=== PATIENT | male | born 1995 ===

== ENCOUNTER → 2023-09-18 | Outpatient (CLI) | payer OTHER | LOC: MHCPAIN 12:58 | DX: R25.2 Cramp and spasm (principal); G93.9 Disorder of brain, unspecified; R47.1 Dysarthria and anarthria; Z86.61 Personal history of infections of the central nervous system | CPT/HCPCS: G0463 ==

== ENCOUNTER 2023-09-27 14:15 | Outpatient (RCR) | payer OTHER | END 2023-09-30 | disposition home or self-care (01) | LOC: MKS.ESL.PT | DX: R47.1 Dysarthria and anarthria (principal); I69.352 Hemiplegia and hemiparesis following cerebral infarction affecting left dominant side; G93.9 Disorder of brain, unspecified; Z86.61 Personal history of infections of the central nervous system ==

== ENCOUNTER → 2023-11-06 | Outpatient (CLI) | payer OTHER | LOC: MHCPAIN 13:49 | DX: M25.562 Pain in left knee (principal); R25.2 Cramp and spasm; G93.9 Disorder of brain, unspecified; R47.1 Dysarthria and anarthria; Z86.61 Personal history of infections of the central nervous system | CPT/HCPCS: G0463 ==

== ENCOUNTER 2024-02-28 11:00 | Outpatient (RCR) | payer OTHER | END 2024-03-01 | disposition home or self-care (01) | LOC: WSST | DX: I69.322 Dysarthria following cerebral infarction (principal) ==

== ENCOUNTER → 2024-03-06 | Outpatient (CLI) | payer OTHER | LOC: MHCPAIN 12:52 | DX: R25.2 Cramp and spasm (principal); G93.9 Disorder of brain, unspecified; R47.1 Dysarthria and anarthria; Z86.61 Personal history of infections of the central nervous system | CPT/HCPCS: G0463 ==

== ENCOUNTER → 2024-03-31 | Outpatient (RCR) | payer OTHER | END | disposition home or self-care (01) | LOC: WSST | DX: I69.322 Dysarthria following cerebral infarction (principal) ==